=== PATIENT | female | born 1955 | race Caucasian/White ===

== ENCOUNTER → 2017-06-16 | Day surgery (SDC) | payer OTHER ==
[~2017-06-16] MED LIST: ACETAMINOPHEN 325 MG TAB ONE; DEXAMETHASONE SOD PHOS 4 MG/ML VIAL ONE; EPINEPHrine HCL (1:1000) 1 MG/ML VIAL ONE; MIDAZOLAM HCL 2 MG/2 ML VIAL ONE; MOXIFLOXACIN 0.5% OPHT SOLN 3 ML BTL ONE; ONDANSETRON HCL 4 MG/2 ML VIAL IV PUSH ONE; PHENYLEPHRINE HCL 10% OPTH SOLN 5 ML BTL ONE; PROPOFOL 200 MG/20 ML AMP IV ONE; SODIUM CHLORIDE 0.9% INJ 10 ML ONE; TETRACAINE 0.5% OPTH SOLN 15 ML BTL ONE; TOBRAMYCIN/DEXAMETHASONE OPTH OINT 3.5 GM TUBE ONE; TRIAMCINOLONE ACETONIDE 40 MG/ML VIAL ONE; ceFAZolin INJ 1,000 MG VIAL ONE; prednisoLONE ACETATE 1% OPHT SUSP 5 ML BTL ONE
--- NOTE | 2017-06-24 06:41 | MP ---
cc: VIRAJ HOWE MD DATE OF SURGERY 06/24/2017 POSTOPERATIVE DIAGNOSIS Retained nuclear sclerotic cataract lens material left eye. PROCEDURE Pars vitrectomy, lensectomy, insertion of intravitreal Kenalog left eye. SURGEON Viraj Howe MD ANESTHESIA Dr. Montague, general BLOOD LOSS Less than 1 cc. COMPLICATIONS None INDICATION FOR THE PROCEDURE This is a delightful patient who had some retained nuclear sclerotic cataract material after cataract extraction with intraocular lens placement. The patient was immediately sent in for evaluation and elected for surgical correction when appropriate. The patient had a posterior chamber intraocular lens in the sulcus which appeared stable. PROCEDURE NOTE After informed consent was obtained, the patient was brought to the operating room. General anesthesia was established. The left eye was prepped and draped in a sterile fashion with Betadine in the conjunctival fornix. A three port pars plana vitrectomy was established with a self-retaining infusion cannula. Core vitreous was evacuated and vitreous traction surrounding the retained nuclear sclerotic cataract material was relieved. The retained lens material was removed with vitrectomy. Scleral depression examination revealed no retinal holes, tears or detachments and the retina was completely attached. Intravitreal Kenalog was instilled. Trocars removed and sclerotomies closed. A subconjunctival injection of Ancef and dexamethasone were given. The right eye was patched with Tobramycin ointment. The patient brought to the recovery room in stable condition. Continue followup with [facility] for her postoperative care. Viraj Howe MD KW/DJL /12:40 AM /6:29 AM [facility]
== END | disposition home or self-care (01) ==
LOC: ESDC 07:39
PROVIDERS: ATTEND Ophthalmology
DX: H59.022 Cataract (lens) fragments in eye following cataract surgery, left eye (principal)
CPT/HCPCS: 00145; 67036; J0171; J0690; J1100; J2250; J2405; J3010; J3301